=== PATIENT | female | born 1955 | race Caucasian/White ===

== ENCOUNTER 2019-12-17 06:18 | Day surgery (SDC) | payer BC ==
[~2019-12-17] VITALS: Ht 154.9 cm; Wt 102.9 kg
[2019-12-17] VITALS (16 sets, daily range): BP systolic 79–135; BP diastolic 33–86
[2019-12-17] MEDS ORDERED: normal saline 1000ml 1,000 ML IV SCH (06:35)
[2019-12-17] MEDS ORDERED: ESCI10TA61 PO (07:02)
[2019-12-17] MEDS ORDERED: PANT40TA4 PO (07:03)
[2019-12-17] MEDS ORDERED: LOSA50TA64 PO (07:03)
[2019-12-17] MEDS ORDERED: LIDOcaine 1%/PF 5ML 10 MG/ML VIAL ONE (08:46)
[2019-12-17] MEDS ORDERED: heparin sodium, porcine/PF 100unit/ml 5ML syringe ONE (08:46)
[2019-12-17] MEDS ORDERED: fentaNYL/PF 50MCG/1 ML 2ML syringe ONE (08:48)
[2019-12-17] MEDS ORDERED: midazolam 2 mg/2 ml injection ONE (08:48)
[2019-12-17] MEDS ORDERED: LIDOcaine 1% w/epiNEPHrine 1:200,000 30ml vial ONE (09:32)
== END 2019-12-17 13:15 | disposition home or self-care (01) ==
LOC: SSTAY O 06:18
PROVIDERS: ATTEND Radiology Diagnostic Radiology
DX: K76.89 Other specified diseases of liver (principal); C18.7 Malignant neoplasm of sigmoid colon; C78.7 Secondary malignant neoplasm of liver and intrahepatic bile duct; Z79.899 Other long term (current) drug therapy
CPT/HCPCS: 36561; 47000; 76937; 77001; 77012; 99152; 99153; C1769; C1788; C1894; J1642; J2250; J3010